=== PATIENT | female | born 1990 | race Caucasian/White ===

== ENCOUNTER 2017-12-09 13:13 | Emergency (ER) | payer OTHER ==
[~2017-12-09] VITALS: Ht 165.1 cm; Wt 51.3 kg
[~2017-12-09 13:13] MED LIST: PROTONIX; RAMITIDINE
[2017-12-10] MEDS ORDERED: INTESTINEX680 M1 PO (02:06)
== END 2017-12-10 02:38 | disposition home or self-care (01) ==
LOC: ER 13:13
DX: K52.9 Noninfective gastroenteritis and colitis, unspecified (principal)

== ENCOUNTER 2023-07-20 09:26 | Outpatient (CLI) | payer OTHER ==
[~2023-07-20 09:26] MED LIST changes: +INTESTINEX680 M1 PO; +PRENATAL CAPLE1 EACH PO
== END 2023-07-20 09:28 | disposition home or self-care (01) ==
LOC: PRENATAL 09:26
PROVIDERS: ATTEND Obstetrics & Gynecology Maternal & Fetal Medicine
DX: O36.80X0 Pregnancy with inconclusive fetal viability, not applicable or unspecified (principal); Z36.82 Encounter for antenatal screening for nuchal translucency; Z36.9 Encounter for antenatal screening, unspecified; Z3A.12 12 weeks gestation of pregnancy

== ENCOUNTER 2023-08-11 10:43 | Emergency (ER) | payer OTHER ==
[~2023-08-11] VITALS: Ht 165.1 cm; Wt 54.4 kg
[2023-08-11] MEDS ORDERED: LIALDA1.2 GM PO (10:53)
[2023-08-11 11:35] LABS: HEMATOCRIT 34.9 % (36.0-45.00); HEMOGLOBIN 12.2 g/dL (12.0-15.00); MEAN CELL VOLUME 78.6 fL (80.00-100.00); MEAN CORPUSCULAR HEMOGLOBIN 27.6 pg (27.00-32.0); MEAN CORPUSCULAR HGB CONC 35.1 g/dl (32.0-36.0); PLATELET COUNT 220 K/uL (150-450); RED BLOOD COUNT 4.44 M/uL (4.00-6.00)
[2023-08-11 11:39] LABS: URINE APPEARANCE Clear; URINE BILIRRUBIN Negative (NEGATIVE); URINE BLOOD Negative; URINE COLOR Yellow; URINE GLUCOSE Negative (NEGATIVE); URINE LEUKOCYTE Negative; URINE NITRATE Negative; URINE PROTEIN Negative (NEGATIVE); URINE UROBILINOGEN 0.2 E.U./dl
[2023-08-11 11:41] LABS: URINE BACTERIA 2665.8 uL (0.0-1933); URINE EPITHELIAL CELLS 23.6 uL (0.0-38.8); URINE RBC 27.3 uL (0.0-20.8)
[2023-08-11 12:20] LABS: RED CELL DISTRIBUTION WIDTH 17.2 % (11.5-14.5)
== END 2023-08-11 14:55 | disposition home or self-care (01) ==
LOC: ER 10:44
PROVIDERS: Emergency Medicine
DX: O20.8 Other hemorrhage in early pregnancy (principal); Z3A.15 15 weeks gestation of pregnancy; R53.81 Other malaise; Z20.822 Contact with and (suspected) exposure to COVID-19; Z88.0 Allergy status to penicillin; Z88.1 Allergy status to other antibiotic agents; Z88.8 Allergy status to other drugs, medicaments and biological substances

== ENCOUNTER → 2023-09-07 11:06 | Outpatient (CLI) | payer OTHER ==
[~2023-09-07 11:06] MED LIST changes: +LIALDA1.2 GM PO
== END | disposition home or self-care (01) ==
LOC: PRENATAL 11:06
PROVIDERS: ATTEND Obstetrics & Gynecology Maternal & Fetal Medicine
DX: O35.3XX0 Maternal care for (suspected) damage to fetus from viral disease in mother, not applicable or unspecified (principal); O44.00 Complete placenta previa NOS or without hemorrhage, unspecified trimester; O99.891 Other specified diseases and conditions complicating pregnancy; Z3A.19 19 weeks gestation of pregnancy

== ENCOUNTER 2023-12-25 14:53 | Outpatient (CLI) | payer OTHER | END 2023-12-25 14:54 | disposition home or self-care (01) | LOC: PRENATAL 14:53 | PROVIDERS: ATTEND Obstetrics & Gynecology Maternal & Fetal Medicine | DX: O26.843 Uterine size-date discrepancy, third trimester (principal); O36.8130 Decreased fetal movements, third trimester, not applicable or unspecified; Z3A.34 34 weeks gestation of pregnancy ==

== ENCOUNTER 2024-01-30 19:29 | Inpatient (IN) | payer OTHER ==
[~2024-01-30] VITALS: Ht 165.1 cm; Wt 67.6 kg
[2024-01-30] MEDS ORDERED: RINGERS SOLUTION,LACTATED 1,000 ML IV SCH (19:45)
[2024-01-30 19:58] LABS: HEMATOCRIT 36.2 % (36.0-45.00); HEMOGLOBIN 12.5 g/dL (12.0-15.00); MEAN CELL VOLUME 79.6 fL (80.00-100.00); MEAN CORPUSCULAR HEMOGLOBIN 27.5 pg (27.00-32.0); MEAN CORPUSCULAR HGB CONC 34.5 g/dl (32.0-36.0); PLATELET COUNT 198 K/uL (150-450); RED BLOOD COUNT 4.55 M/uL (4.00-6.00); RED CELL DISTRIBUTION WIDTH 13.9 % (11.5-14.5)
[2024-01-30 20:16] LABS: INR < 0.93; PARTIAL THROMBOPLASTIN TIME 23.2 SECONDS (22.0-34.0); PROTHROMBIN TIME 9.3 SECONDS (9.0-11.5)
[2024-01-30 20:17] LABS: CREATININE SERUM 0.73 mg/dL (0.55-1.02); GFR 91.81; POTASSIUM 3.81 mEq/L (3.5-5.1)
[2024-01-30] MEDS ORDERED: IBUprofen 400 MG TABLET PO PRN (21:15)
[2024-01-30] MEDS ORDERED: CHLORHEXIDINE GLUCONATE 120 ML BOTTLE TOP SCH (21:30)
[2024-01-30] MEDS ORDERED: OXYTOCIN 10 UNITS/ML VIAL IM STA (21:30)
[2024-01-30] MEDS ORDERED: OXYTOCIN 1,000 ML IV SCH (21:30)
[2024-01-30] MEDS ORDERED: ERYTHROMYCIN BASE 1 GM TUBE OP SCH (21:30)
[2024-01-30] MEDS ORDERED: FAMOTIDINE/PF 20 MG/2 ML VIAL IV ONE (23:45)
[2024-01-30] MEDS ORDERED: ACETAMINOPHEN 500 MG GEL..CAP PO ONE (23:45)
[2024-01-31 03:42] LABS: HEMATOCRIT 33.5 % (36.0-45.00); HEMOGLOBIN 11.3 g/dL (12.0-15.00); MEAN CELL VOLUME 77.9 fL (80.00-100.00); MEAN CORPUSCULAR HEMOGLOBIN 26.3 pg (27.00-32.0); MEAN CORPUSCULAR HGB CONC 33.8 g/dl (32.0-36.0); PLATELET COUNT 169 K/uL (150-450); RED CELL DISTRIBUTION WIDTH 13.8 % (11.5-14.5)
== END 2024-02-01 13:10 | disposition home or self-care (01) | DRG 807 ==
LOC: OB/GYN 19:29 → LDR 19:29 → OB/GYN 22:51
PROVIDERS: ADMIT Obstetrics & Gynecology; ATTEND Obstetrics & Gynecology
PROC: 10E0XZZ Delivery of Products of Conception, External Approach (ICD-10-PCS; principal; 2024-01-30)
PROC: 4A1HXCZ Monitoring of Products of Conception, Cardiac Rate, External Approach (ICD-10-PCS; 2024-01-30)
DX: O99.824 Streptococcus B carrier state complicating childbirth (principal); Z37.0 Single live birth; Z3A.39 39 weeks gestation of pregnancy; Z20.822 Contact with and (suspected) exposure to COVID-19